=== PATIENT | female | born 1950 | race Caucasian/White ===

== ENCOUNTER 2017-06-08 17:37 | Observation (INO) | payer OTHER ==
[~2017-06-08] VITALS: Ht 157.5 cm; Wt 96.5 kg
[~2017-06-08 17:37] MED LIST: ADVAIR 250/501 DISK; ADVAIR 250/501 DISK IH; ADVIL,NUPRIN,M200 MG PO; ALPRAZOLAM; ALPRAZOLAM0.25 M2; ALPRAZOLAM0.25 M2 PO; AMBIEN CR12.5 MG PO; ASPIR 8181 M1 PO; Advair 250/50 Diskus IH; BEE POLLEN500 MG PO; BEE POLLEN550 MG PO; HYDROCODON-ACE1 EACH; Keflex PO; LEVOTHYROXINE; LEVOTHYROXINE100 MCG PO; LIPITOR; LIPITOR20 MG PO; LISINOPRIL10 MG PO; LO-DOSE ASPIRIN81 M1 PO; Levothroid,Synthroid PO; METOPROLOL SUCC50 MG PO; MONTELUKAST SOD10 MG PO; MSM500 MG PO; NIACIN500 M4 PO; NITROSTAT0.4 MG SL; NORCO 5/3251 TABLET PO; PROVENTIL,2.5 MG/3 M IH; SINGULAIR10 MG PO; SOY MENOPAUSE55 MG PO; TOPROL; TOPROL XL50 MG; TOPROL XL50 MG PO; TYLENOL REGULA325 MG PO; Toprol XL PO; VENTOLIN HFA18 GM IH; VICODIN,LORT1 TABLET PO; VITAMIN D2000 UNIT PO; VITAMIN D22000 UNIT PO; VITAMIN D32000 UNIT PO; Zocor PO
[2017-06-08 19:09] LABS: HEMATOCRIT 35.2 % (36.0-46.0); MCH 29.9 PG (29.0-34.0); MCHC 33.8 G/DL (30.0-36.0); MCV 88.4 FL (83-99); MEAN PLAT.VOLUME 11.5 uM^3 (9.5-12.4); PLATELET COUNT 176 K/uL (156-360); RBC DIS.WIDTH-CV 12.6 % (11.8-14.6); RBC DIS.WIDTH-SD 40.8 % (39-53); RED BLOOD COUNT 3.98 M/uL (3.80-5.20); WHITE BLOOD COUNT 8.7 K/uL (4.1-10.2)
[2017-06-08 19:23] LABS: CHLORIDE 105 mEq/L (99-109); POTASSIUM 3.9 mEq/L (3.7-5.4); SODIUM 140 mEq/L (136-147)
[2017-06-08 19:25] LABS: GLUCOSE 166 mg/dL (70-99)
[2017-06-08 19:27] LABS: ANION GAP 10 MEQ/L (2-14); TOTAL BILIRUBIN 0.5 mg/dL (0.0-1.0)
[2017-06-08 19:29] LABS: ALKALINE PHOSPHATASE 99 IU/L (3-129); GFR ESTIMATE (CALCULATED) > 59 mL/min/
[2017-06-08 19:30] LABS: UREA NITROGEN (BUN) 16 mg/dL (9-23)
[2017-06-08 19:31] LABS: TROP-I INTERPRETATION NEGATIVE; TROPONIN-I < 0.01 ng/mL (0.0-0.30)
[2017-06-08 19:32] LABS: LIPASE 17 U/L (1.0-51.0)
[2017-06-09] MEDS ORDERED: VITAMIN B-6100 MG PO (00:50)
[2017-06-09 02:09] VITALS: BP 139/66
[2017-06-09 02:36] LABS: TROP-I INTERPRETATION NEGATIVE; TROPONIN-I 0.01 ng/mL (0.0-0.30)
[2017-06-09 04:38] VITALS: BP 130/85
[2017-06-09 07:12] VITALS: BP 158/69
[2017-06-09 07:36] LABS: HEMATOCRIT 37.2 % (36.0-46.0); MCH 30.1 PG (29.0-34.0); MCHC 33.3 G/DL (30.0-36.0); MCV 90.3 FL (83-99); PLATELET COUNT 186 K/uL (156-360); RBC DIS.WIDTH-CV 12.8 % (11.8-14.6); RBC DIS.WIDTH-SD 42.3 % (39-53); RED BLOOD COUNT 4.12 M/uL (3.80-5.20); WHITE BLOOD COUNT 6.5 K/uL (4.1-10.2)
[2017-06-09 07:58] LABS: ANION GAP 5 MEQ/L (2-14); CHLORIDE 107 MEQ/L (99-109); GFR ESTIMATE (CALCULATED) > 59 mL/min/; SAMPLE HEMOLYSIS CHECK 0; SAMPLE ICTERIC CHECK 0; SAMPLE LIPEMIA CHECK 0; SODIUM 143 MEQ/L (136-147); UREA NITROGEN (BUN) 14 mg/dL (9-23)
[2017-06-09 08:02] LABS: GLUCOSE 89 mg/dL (70-99); POTASSIUM 4.9 MEQ/L (3.7-5.4)
[2017-06-09 08:03] LABS: TROP-I INTERPRETATION NEGATIVE; TROPONIN-I < 0.01 ng/mL (0.0-0.30)
[2017-06-09 12:00] VITALS: BP 147/72
== END 2017-06-09 12:53 | disposition home or self-care (01) ==
LOC: EME 17:37 → EDOF 06-09 00:27 → ENRESERV 06-09 00:27 → 5WEST 06-09 01:39
PROVIDERS: Emergency Medicine; Nurse Practitioner Adult Health
DX: R07.89 Other chest pain (principal); I10 Essential (primary) hypertension; E78.5 Hyperlipidemia, unspecified; E03.9 Hypothyroidism, unspecified; J45.909 Unspecified asthma, uncomplicated; E66.9 Obesity, unspecified; Z68.38 Body mass index [BMI] 38.0-38.9, adult; I34.1 Nonrheumatic mitral (valve) prolapse; G43.909 Migraine, unspecified, not intractable, without status migrainosus; F41.9 Anxiety disorder, unspecified; K21.9 Gastro-esophageal reflux disease without esophagitis; Z79.82 Long term (current) use of aspirin; Z90.710 Acquired absence of both cervix and uterus; Z88.1 Allergy status to other antibiotic agents; Z88.2 Allergy status to sulfonamides; Z91.09 Other allergy status, other than to drugs and biological substances
CPT/HCPCS: 71010; 71275; 80048; 80053; 83690; 84484; 85027; 93005; 94640; 99281; 99285; G0378; J7030

== ENCOUNTER → 2017-08-27 | Outpatient (CLI) | payer MEDICARE, OTHER ==
[~2017-08-27] MED LIST changes: +VITAMIN B-6100 MG PO
== END | disposition home or self-care (01) ==
LOC: CDC 08:37
DX: Z01.810 Encounter for preprocedural cardiovascular examination (principal); M75.41 Impingement syndrome of right shoulder; I44.0 Atrioventricular block, first degree; R94.31 Abnormal electrocardiogram [ECG] [EKG]
CPT/HCPCS: 93000

== ENCOUNTER 2017-09-24 05:23 | Day surgery (SDC) | payer OTHER ==
[~2017-09-24] VITALS: Ht 157.5 cm; Wt 94.3 kg
[~2017-09-24 05:23] MED LIST changes: +LISINOPRIL20 MG PO; +NEXIUM20 MG PO
[2017-09-24 06:00] VITALS: BP 152/65
[2017-09-24 09:48] VITALS: BP 162/74
[2017-09-24 10:49] VITALS: BP 152/69
== END 2017-09-24 10:50 | disposition home or self-care (01) ==
LOC: SDC 05:23
DX: M75.111 Incomplete rotator cuff tear or rupture of right shoulder, not specified as traumatic (principal); M75.41 Impingement syndrome of right shoulder; I10 Essential (primary) hypertension; J45.909 Unspecified asthma, uncomplicated; E03.9 Hypothyroidism, unspecified; I34.1 Nonrheumatic mitral (valve) prolapse; Z79.82 Long term (current) use of aspirin; Z88.2 Allergy status to sulfonamides
CPT/HCPCS: 94640; J0171; J0330; J0690; J1100; J2250; J2405; J2795; J3010

== ENCOUNTER 2017-12-11 20:36 | Emergency (ER) | payer OTHER ==
[~2017-12-11] VITALS: Ht 157.5 cm; Wt 97.5 kg
[2017-12-11 21:30] LABS: HEMATOCRIT 37.3 % (36.0-46.0); HEMOGLOBIN 12.6 G/DL (11.9-15.5); MCH 29.9 PG (29.0-34.0); MCHC 33.8 G/DL (30.0-36.0); MCV 88.4 FL (83-99); PLATELET COUNT 189 K/uL (156-360); RBC DIS.WIDTH-SD 41.9 % (39-53); RED BLOOD COUNT 4.22 M/uL (3.80-5.20); WHITE BLOOD COUNT 7.3 K/uL (4.1-10.2)
[2017-12-11 21:40] LABS: CHLORIDE 106 mEq/L (99-109); POTASSIUM 4.7 mEq/L (3.7-5.4); SODIUM 141 mEq/L (136-147)
[2017-12-11 21:42] LABS: GLUCOSE 115 mg/dL (70-99)
[2017-12-11 21:46] LABS: CREATININE 1.2 mg/dL (0.6-1.3); GFR ESTIMATE (CALCULATED) 48 mL/min/
[2017-12-11 21:47] LABS: UREA NITROGEN (BUN) 20 mg/dL (9-23)
[2017-12-11 21:49] LABS: TROP-I INTERPRETATION NEGATIVE; TROPONIN-I < 0.01 ng/mL (0.0-0.30)
[2017-12-11 22:27] LABS: D-DIMER ELISA < 150.00 ng/mLDDU (<230)
[2017-12-11 22:28] LABS: ALBUMIN 4.2 g/dL (3.2-4.8)
[2017-12-11 22:31] LABS: TOTAL PROTEIN 6.9 g/dL (6.4-8.3)
[2017-12-11 22:33] LABS: TOTAL BILIRUBIN 0.6 mg/dL (0.0-1.0)
[2017-12-11 22:34] LABS: ALKALINE PHOSPHATASE 102 IU/L (3-129)
[2017-12-11 22:36] LABS: AST (GOT) 25 IU/L (2-34)
[2017-12-11 22:37] LABS: ALT (GPT) 25 IU/L (3-49); DIRECT BILIRUBIN 0.2 mg/dL (0.0-0.3)
[2017-12-11 22:38] LABS: LIPASE 19 U/L (1.0-51.0)
[2017-12-11] MEDS ORDERED: ALBUTEROL2.5 MG/3 M IH (23:55)
[2017-12-12] MEDS ORDERED: NORCO 5/3251 TABLET PO (01:32)
[2017-12-12] MEDS ORDERED: LIDODERM 5% P1 PATCH TD (01:32)
[2017-12-12 01:58] VITALS: BP 152/99
== END 2017-12-12 02:04 | disposition home or self-care (01) ==
LOC: EME 20:36
DX: R07.89 Other chest pain (principal); M54.6 Pain in thoracic spine; M25.511 Pain in right shoulder; G89.29 Other chronic pain; I10 Essential (primary) hypertension; E78.5 Hyperlipidemia, unspecified; E03.9 Hypothyroidism, unspecified; J44.9 Chronic obstructive pulmonary disease, unspecified; Z79.82 Long term (current) use of aspirin; Z86.73 Personal history of transient ischemic attack (TIA), and cerebral infarction without residual deficits; Z90.49 Acquired absence of other specified parts of digestive tract; Z90.710 Acquired absence of both cervix and uterus; Z88.2 Allergy status to sulfonamides; Z88.1 Allergy status to other antibiotic agents; Z91.09 Other allergy status, other than to drugs and biological substances
CPT/HCPCS: 71046; 71275; 80048; 80076; 83690; 84484; 85027; 85379; 93005; 99281; 99285; J2270

== ENCOUNTER → 2017-12-18 | Outpatient (CLI) | payer OTHER ==
[~2017-12-18] MED LIST changes: +ALBUTEROL2.5 MG/3 M IH; +LIDODERM 5% P1 PATCH TD
== END | disposition home or self-care (01) ==
LOC: NUC 08:26
DX: M17.0 Bilateral primary osteoarthritis of knee (principal); M47.895 Other spondylosis, thoracolumbar region
CPT/HCPCS: 78315; A9503

== ENCOUNTER 2018-02-26 21:45 | Emergency (ER) | payer OTHER ==
[~2018-02-26] VITALS: Ht 157.5 cm; Wt 97.8 kg
[2018-02-26] MEDS ORDERED: KEFLEX500 MG PO (23:28)
[2018-02-26] MEDS ORDERED: ULTRAM50 MG PO (23:35)
[2018-02-26 23:47] VITALS: BP 159/87
== END 2018-02-26 23:47 | disposition home or self-care (01) ==
LOC: EME 21:45
DX: L03.115 Cellulitis of right lower limb (principal); E78.5 Hyperlipidemia, unspecified; Z79.51 Long term (current) use of inhaled steroids; Z79.82 Long term (current) use of aspirin; Z98.890 Other specified postprocedural states; Z90.49 Acquired absence of other specified parts of digestive tract; Z90.710 Acquired absence of both cervix and uterus; Z88.2 Allergy status to sulfonamides; Z88.1 Allergy status to other antibiotic agents; Z91.048 Other nonmedicinal substance allergy status
CPT/HCPCS: 73610; 99281; 99284